=== PATIENT | male | born 1975 | race Caucasian/White ===

== ENCOUNTER → 2021-04-04 | Outpatient (CLI) | payer BC ==
--- NOTE | 2021-04-04 12:11 | FL ---
EXAMINATION TYPE: FL barium swallow DATE OF EXAM: 04/04/2021 CLINICAL HISTORY: Patient has a feeling of sticking in throat. Patient has history of GERD TECHNIQUE: A double contrast esophagram is performed utilizing air and barium. A total of 68 second s of fluoroscopic time was utilized during procedure. COMPARISON: None FINDINGS: Initially, effervescent crystals were swallowed. Thick barium was given and a cup as the pa tient was standing. Thin barium was given through a straw in the DAWSON position. The esophagus shows normal motility and emptying into the stomach. There is a tiny sliding-type hiata l hernia. There is mild spontaneous gastroesophageal reflux. No gastroesophageal reflux could be elic ited with Valsalva maneuvers. IMPRESSION: 1. Tiny sliding type hiatal hernia. 2. Mild spontaneous gastroesophageal reflux.
--- NOTE | 2021-04-04 13:01 | ECHOF ---
Referral Reason:Z82.49 family hx heart disease MEASUREMENTS -------- HEIGHT: 170.2 cm WEIGHT: 97.5 kg BP: RVIDd: 3.2 cm (< 3.3) IVSd: 1.2 cm (0.6 - 1.1) LVIDd: 4.4 cm (3.9 - 5.3) LVPWd: 1.1 cm (0.6 - 1.1) IVSs: 1.6 cm LVIDs: 2.8 cm LVPWs: 1.7 cm LAESV Index (A-L): 23.45 ml/m Ao Diam: 2.6 cm (2.0 - 3.7) AV Cusp: 2.1 cm (1.5 - 2.6) LA Diam: 3.0 cm (2.7 - 3.8) MV EXCURSION: 19.676 mm (> 18.000) MV EF SLOPE: 99 mm/s (70 - 150) EPSS: 0.6 cm MV E Sage: 0.79 m/s MV DecT: 241 ms MV A Sage: 0.53 m/s MV E/A Ratio: 1.48 RAP: 5.00 mmHg RVSP: 31.00 mmHg FINDINGS -------- Sinus rhythm. This was a technically adequate study. The left ventricular size is normal. There is mild concentric left ventricular hypertrophy. Overa ll left ventricular systolic function is normal with, an EF between 55 - 60 %. The diastolic fillin g pattern is normal for the age of the patient 8.26. The right ventricle is normal in size. Normal LA size by volume 22+/-6 ml/m2. The right atrial size is normal. Interatrial and interventricular septum intact. The aortic valve is trileaflet and appears structurally normal. There is no evidence of aortic regu rgitation. There is no evidence of aortic stenosis. Mild mitral regurgitation is present. Mild tricuspid regurgitation present. There is no evidence of pulmonary hypertension. The right v entricular systolic pressure, as measured by Doppler, is 31.00mmHg. There is no pulmonic regurgitation present. The aortic root size is normal. Normal inferior vena cava with normal inspiratory collapse consistent with estimated right atrial pre ssure of 5 mmHg. There is no pericardial effusion. CONCLUSIONS -------- 1. The left ventricular size is normal. 2. There is mild concentric left ventricular hypertrophy. 3. Overall left ventricular systolic function is normal with, an EF between 55 - 60 %. 4. The diastolic filling pattern is normal for the age of the patient 8.26 5. Mild mitral regurgitation is present. 6. Mild tricuspid regurgitation present. DRUM LOADER AND UNLOADER: Danielle Dsouza RDCS
--- NOTE | 2021-04-04 14:08 | US ---
EXAMINATION TYPE: US thyroid st tissue head/neck DATE OF EXAM: 04/04/2021 COMPARISON: NONE CLINICAL HISTORY: E04.1 Thyroid nodule. Pt states thyroid nodules, hasn't had a scan in 10 yrs, pt no t on thyroid meds GLAND SIZE: Right Lobe: 4.6 x 1.3 x 1.6 cm Overall Parenchyma: heterogenous Left Lobe: 3.7 x 1.1 x 1.4 cm Overall Parenchyma: heterogeneous Isthmus Thickness: 0.4 cm NODULES RIGHT: # of nodules measured on right: 1 1. 0.4 X 0.3 x 0.5 cm, lower lateral, solid or almost completely solid, hypoechoic nodule, which is wider than tall, with smooth margins, without echogenic foci. Prior size: No prior Bilateral neck scanned, no evidence of lymphadenopathy. Heterogeneous thyroid with small, sub-centime ter nodule right lobe. IMPRESSION: Subcentimeter right thyroid nodule is not within criteria for biopsy. Continued sonographic follow-up is recommended. 2017 ACR TI-RADS LEVEL: 4 *Highest TI-RADS level nodule reported
== END | disposition home or self-care (01) ==
LOC: RADUSWWP 09:27
PROVIDERS: ATTEND Otolaryngology
DX: E04.1 Nontoxic single thyroid nodule (principal); I08.1 Rheumatic disorders of both mitral and tricuspid valves; K21.9 Gastro-esophageal reflux disease without esophagitis; K44.9 Diaphragmatic hernia without obstruction or gangrene
CPT/HCPCS: 74220; 76536; 93306

== ENCOUNTER 2024-09-09 22:43 | Emergency (ER) | payer BC ==
[2024-09-09 22:50] VITALS: TEMP 98.9
--- NOTE | 2024-09-09 23:24 | ED ---
Arrhythmia/Palpitations HPI - General Chief Complaint: Arrhythmia/Palpitations Stated Complaint: Tachycardia Time Seen by Provider: 09/09/24 22:45 Source: patient Mode of arrival: EMS Limitations: no limitations - History of Present Illness Initial Comments: Patient is a 49-year-old gentleman the past medical history of prediabetes presenting today for palpitations. 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 He had a stress test and echocardiogram done last spring and was told they were normal. Tonight patient was in bed and had gotten up to get a glass of water and started to feel palpitations in his chest. His listen to his heart by placing her ear on his chest and heard his heart beating fast. Patient did experience some discomfort radiating down his left arm but denies any chest pain. On EMS arrival patient was noted to be in SVT. They tried vagal maneuvers without success. Patient was being transported into the ambulance and adenosine is being prepared when patient spontaneously converted, states that he felt the palpitations resolved when he went into the cold air. Currently denies chest pain, shortness of breath, lightheadedness, dizziness, nausea, vomiting, diarrhea, abdominal pain, lower extremity swelling. No history of blood clots. Patient denies illicit drug use or alcohol use. The states that he drinks large amount of caffeine daily, stating he drinks 40 ounces of cold brew and a diet pop per day. Recent travel surgery or hospitalizations. Denies fevers denies cough or sore throat. No first-degree relatives with history of prior stroke or heart attack. - Related Data Home Medications Medication Instructions Recorded Confirmed DULoxetine HCL [Cymbalta] 60 mg PO DAILY 07/17/20 07/17/20 Niacin 1,000 mg PO HS 07/17/20 07/17/20 Omeprazole 20 mg PO DAILY 07/17/20 07/17/20 Allergies Allergy/AdvReac Type Severity Reaction Status Date / Time No Known Allergies Allergy Verified 09/09/24 22:51 Review of Systems ROS Statement: Those systems with pertinent positive or pertinent negative responses have been documented in the HPI. ROS Other: All systems not noted in ROS Statement are negative. Past Medical History Past Medical History: GERD/Reflux, Hyperlipidemia, Osteoarthritis (OA), Sleep Apnea/CPAP/BIPAP Additional Past Medical History / Comment(s): Pre-diabetes, PVCs History of Any Multi-Drug Resistant Organisms: None Reported Past Surgical History: Adenoidectomy, Tonsillectomy Past Anesthesia/Blood Transfusion Reactions: No Reported Reaction Past Psychological History: ADD/ADHD, Depression Smoking Status: Never smoker Past Alcohol Use History: Occasional Past Drug Use History: None Reported General Exam - General Exam Comments Initial Comments: PE: CONSTITUTIONAL: No apparent distress, well appearing SKIN: Warm, dry, no jaundice, hives or petechiae EYES: Pupils are equally round, extraocular movements intact without nystagmus, clear conjunctiva, non-icteric sclera HENT: Normocephalic, atraumatic, moist mucus membranes, oropharynx clear without exudates NECK: , Full range of motion, normal appearance PULMONARY: Clear to auscultation without wheezes, rhonchi, or rales, normal excursion, no accessory muscle use and no stridor CARDIOVASCULAR: Regular rate, rhythm, normal S1 and S2. No appreciated murmurs, rubs or gallops. Strong radial pulses with intact distal perfusion. No lower extremity edema GASTROINTESTINAL: Soft, active bowel sounds throughout, non-tender, non- distended, no palpable masses, no rebound or guarding. No hepatosplenomegaly GENITOURINARY: MUSCULOSKELETAL: Extremities have no gross deformity, no edema, redness, or swelling. No calf swelling NEUROLOGIC:_a/o x 3, GCS 15, normal mentation and speech. Moves all extremities x 4 without motor or sensory deficit PSYCHIATRIC:_normal mood and affect, thought process is clear and linear Limitations: no limitations Course Vital Signs 09/09/24 09/09/24 09/10/24 22:45 23:03 01:00 Temperature 98.9 F Pulse Rate 75 75 79 Respiratory 22 22 16 Rate Blood Pressure 137/109 122/88 O2 Sat by Pulse 95 97 Oximetry 09/10/24 09/10/24 09/10/24 01:53 02:45 02:50 Temperature Pulse Rate 82 63 63 Respiratory 15 18 18 Rate Blood Pressure 127/88 121/98 O2 Sat by Pulse 93 L 95 Oximetry EKG Findings - EKG Comments: EKG Findings:: Sinus rhythm, rate 76 bpm, UT interval 153 ms, QRS duration 96 ms, QT/QTc 377/408 ms, normal axis, no ST elevations or depressions, no arrhythmia, no prior for comparison Medical Decision Making - Medical Decision Making Was pt. sent in by a medical professional or institution (, PA, NEUROPSYCHOLOGIST, urgent care, hospital, or [facility]...) When possible be specific @ -No Did you speak to anyone other than the patient for history (EMS, parent, family, police, friend...)? What history was obtained from this source @ -No Did you review nursing and triage notes (agree or disagree)? Why? @ -I reviewed and agree with nursing and triage notes Were old charts reviewed (outside hosp., previous admission, EMS record, old E KG, old radiological studies, urgent care reports/EKG's, [facility] records)? Report findings @ -Medical records reviewed prior EKG Differential Diagnosis (chest pain, altered mental status, abdominal pain women, abdominal pain men, vaginal bleeding, weakness, fever, dyspnea, syncope, headache, dizziness, GI bleed, back pain, seizure, CVA, palpatations, mental health, musculoskeletal)? @Differential Palpitations Ventricular arrhythmias, atrial arrhythmias, myocardial infarction, anemia, thyr otoxicosis, electrolyte imbalance, hypokalemia, pulmonary embolism, pulmonary disease, drugs, alcohol, anxiety, stress.... This is not meant to be an all-inclusive list. EKG interpreted by me (3pts min.). @ -As above X-rays interpreted by me (1pt min.). @ -No cardiomegaly or consolidations CT interpreted by me (1pt min.). @ -None done U/S interpreted by me (1pt. min.). @ -None done What testing was considered but not performed or refused? (CT, X-rays, U/S, labs)? Why? @ -None What meds were considered but not given or refused? Why? @ -None Did you discuss the management of the patient with other professionals (professionals i.e. , KEY, NEUROPSYCHOLOGIST, lab, RT, psych nurse, director social welfare, lawyers, teacher, licensing officer, case assistant)? Give summary @ -No Was smoking cessation discussed for >3mins.? @ -No Was critical care preformed (if so, how long)? @ -No Were there social determinants of health that impacted care today? How? (Homelessness, low income, unemployed, alcoholism, drug addiction, tr ansportation, low edu. Level, literacy, decrease access to med. care, fci, rehab)? @ -No Was there de-escalation of care discussed even if they declined (Discuss DNR or withdrawal of care, Hospice)? @ -No What co-morbidities impacted this encounter? (DM, HTN, Smoking, COPD, CAD, Cancer, CVA, ARF, Chemo, Hep., AIDS, mental health diagnosis, sleep apnea, morbid obesity)? @ -None Was patient admitted / discharged? Hospital course, mention meds given and route, prescriptions, significant lab abnormalities, going to OR and other pertinent info. @ Discharged- Patient is a pleasant 49-year-old gentleman history of frequent PVCs presenting today for palpitations. Noted to be in SVT by paramedics which spontaneously resolved with. On arrival patient is in normal sinus rhythm. He did present with a rhythm strip from EMS showing what appears to be SVT. Patient states symptoms resolved though does note some left shoulder soreness currently. Otherwise denies chest pain. Vital stable. Physical exam performed. Discussed with patient plan for cardiac workup, D-dimer, troponin, EKG, chest x-ray, TSH, magnesium level. Patient agreeable plan. Will order 325 mg chewable aspirin. Patient politely declined any additional pain medication. Labs and imaging reviewed. TSH elevated though T4 wnl. Otherwsie grossly within normal limits. Abnormal values not concerning for acute pathology related to presenting complaint. Troponin <0.012, repeat 0.016, still wnl, not significant elevated. Pt currently free of chest pain. Discussed these findings with pt and plan for discharge. Pt is comfortable with discharge at this point. We did discuss decreasing his caffiene intake in case ths may have triggered today's episode. Pt understanding and agreeable. In my medical judgment there is currently no evidence of an immediate life- threatening or surgical condition. Discharge is therefore indicated at this time. Discharge treatment instructions, follow up instructions, and appropriate emergency department return precautions were discussed with the patient and/or medical decision maker. Patient and/or medical decision maker expressed understanding of and agreed with the treatment plan, follow up instructions, and emergency department return precaution. All patient's and/or medical decision maker's questions were answered. The patient was advised that a small risk still exists that a serious condition could develop and was therefore instructed to return to the ED for any changes in symptoms, persistent symptoms, inability to obtain proper follow-up or for any further concerns. Patient received verbal and written instructions for this condition. Undiagnosed new problem with uncertain prognosis? @ -No Drug Therapy requiring intensive monitoring for toxicity (Heparin, Nitro, Insulin, Cardizem)? @ -No Were any procedures done? @ -No Diagnosis/symptom? @ -SVT Acute, or Chronic, or Acute on Chronic? @acute Uncomplicated (without systemic symptoms) or Complicated (systemic symptoms)? @ -complicated Side effects of treatment? @ -No Exacerbation, Progression, or Severe Exacerbation? @ -No Poses a threat to life or bodily function? How? (Chest pain, [place], [place], pneumonia, PE, COPD, DKA, ARF, appy, cholecystitis, CVA, Diverticulitis, Homicidal, Suicidal, threat to staff... and all critical care pts) @ At time of discharge no, however SVT untreated can be life threatening - Lab Data Result diagrams: 09/09/24 22:49 09/09/24 22:49 Lab Results 09/09/24 09/09/24 09/09/24 Range/Units 22:49 22:49 22:49 WBC 9.3 (3.8-10.6) k/uL RBC 5.06 (4.30-5.90) m/uL Hgb 16.5 (13.0-17.5) gm/dL Hct 47.7 (39.0-53.0) % MCV 94.4 (80.0-100.0) fL MCH 32.6 (25.0-35.0) pg MCHC 34.6 (31.0-37.0) g/dL RDW 12.3 (11.5-15.5) % Plt Count 316 (150-450) k/uL MPV 7.9 Neutrophils % 34 % Lymphocytes % 51 % Monocytes % 6 % Eosinophils % 6 % Basophils % 1 % Neutrophils # 3.2 (1.3-7.7) k/uL Lymphocytes # 4.7 (1.0-4.8) k/uL Monocytes # 0.6 (0-1.0) k/uL Eosinophils # 0.5 (0-0.7) k/uL Basophils # 0.1 (0-0.2) k/uL PT 10.1 (10.0-12.5) sec INR 0.9 (<1.2) APTT 23.4 (22.0-30.0) sec D-Dimer 0.27 (<0.60) mg/L FEU Sodium 140 (137-145) mmol/L Potassium 4.1 (3.5-5.1) mmol/L Chloride 111 H (98-107) mmol/L Carbon Dioxide 21 L (22-30) mmol/L Anion Gap 8 mmol/L BUN 18 (9-20) mg/dL Creatinine 1.23 (0.66-1.25) mg/dL Est GFR (CKD-EPI)AfAm 80 (>60 ml/min/1.73 sqM) Est GFR (CKD-EPI)NonAf 69 (>60 ml/min/1.73 sqM) Glucose 119 H (74-99) mg/dL Calcium 9.5 (8.4-10.2) mg/dL Magnesium 2.3 (1.6-2.3) mg/dL Total Bilirubin 0.9 (0.2-1.3) mg/dL AST 43 (17-59) U/L ALT 56 H (4-49) U/L Alkaline Phosphatase 62 (38-126) U/L Troponin I (0.000-0.034) ng/mL Total Protein 6.9 (6.3-8.2) g/dL Albumin 4.6 (3.5-5.0) g/dL TSH 7.460 H (0.465-4.680) mIU/L Free T4 (0.78-2.19) ng/dL 09/09/24 09/09/24 09/10/24 Range/Units 22:49 22:49 01:53 WBC (3.8-10.6) k/uL RBC (4.30-5.90) m/uL Hgb (13.0-17.5) gm/dL Hct (39.0-53.0) % MCV (80.0-100.0) fL MCH (25.0-35.0) pg MCHC (31.0-37.0) g/dL RDW (11.5-15.5) % Plt Count (150-450) k/uL MPV Neutrophils % % Lymphocytes % % Monocytes % % Eosinophils % % Basophils % % Neutrophils # (1.3-7.7) k/uL Lymphocytes # (1.0-4.8) k/uL Monocytes # (0-1.0) k/uL Eosinophils # (0-0.7) k/uL Basophils # (0-0.2) k/uL PT (10.0-12.5) sec INR (<1.2) APTT (22.0-30.0) sec D-Dimer (<0.60) mg/L FEU Sodium (137-145) mmol/L Potassium (3.5-5.1) mmol/L Chloride (98-107) mmol/L Carbon Dioxide (22-30) mmol/L Anion Gap mmol/L BUN (9-20) mg/dL Creatinine (0.66-1.25) mg/dL Est GFR (CKD-EPI)AfAm (>60 ml/min/1.73 sqM) Est GFR (CKD-EPI)NonAf (>60 ml/min/1.73 sqM) Glucose (74-99) mg/dL Calcium (8.4-10.2) mg/dL Magnesium (1.6-2.3) mg/dL Total Bilirubin (0.2-1.3) mg/dL AST (17-59) U/L ALT (4-49) U/L Alkaline Phosphatase (38-126) U/L Troponin I <0.012 0.016 (0.000-0.034) ng/mL Total Protein (6.3-8.2) g/dL Albumin (3.5-5.0) g/dL TSH (0.465-4.680) mIU/L Free T4 1.43 (0.78-2.19) ng/dL Disposition Clinical Impression: Supraventricular tachycardia Disposition: HOME SELF-CARE Condition: Good Instructions (If sedation given, give patient instructions): Heart Palpitations (ED) Additional Instructions: Every disease is a spectrum and a small chance still exists that a serious condition could develop, for this reason, please monitor yourself closely for new, changing or worsening symptoms, return of symptoms, chest pain, shortness of breath/difficulty in breathing, palpitations fever, inability to tolerate/keep down fluids or your medications, inability to follow up with outpatient providers as instructed and should you experience these symptoms or should you have any further concerns for your wellbeing please return to the ED or call 911 immediately. PLEASE call your primary care physician as soon as possible to arrange / discuss plan for followup appointment. Appointment in the next 1-3 days is strongly encouraged if possible. PLEASE let us know here before you leave if there is anything further we can do to be of any assistance. Take care and feel Better! Is patient prescribed a controlled substance at d/c from ED?: No Referrals: Sushant Orellana MD [Primary Care Provider] - 1-2 days
[2024-09-09 23:26] LABS: Basophils # (A) 0.1 k/uL (0-0.2); Basophils % (A) 1 %; Eosinophils # (A) 0.5 k/uL (0-0.7); Eosinophils % (A) 6 %; HCT 47.7 % (39.0-53.0); HGB 16.5 gm/dL (13.0-17.5); Lymphocytes # (A) 4.7 k/uL (1.0-4.8); Lymphocytes % (A) 51 %; MCH 32.6 pg (25.0-35.0); MCHC 34.6 g/dL (31.0-37.0); MCV 94.4 fL (80.0-100.0); Mean Platelet Volume 7.9; Monocytes # (A) 0.6 k/uL (0-1.0); Monocytes % (A) 6 %; Neutrophils # (A) 3.2 k/uL (1.3-7.7); Neutrophils % (A) 34 %; Platelet Count 316 k/uL (150-450); RBC 5.06 m/uL (4.30-5.90); RDW 12.3 % (11.5-15.5); WBC 9.3 k/uL (3.8-10.6)
[2024-09-09 23:31] LABS: ALT 56 U/L (4-49); AST 43 U/L (17-59); African American GFR (CKD) 80 (>60 ml/min/1.73 sqM); Albumin 4.6 g/dL (3.5-5.0); Alkaline Phosphatase 62 U/L (38-126); Anion Gap 8 mmol/L; Blood Urea Nitrogen 18 mg/dL (9-20); Calcium 9.5 mg/dL (8.4-10.2); Carbon Dioxide 21 mmol/L (22-30); Chloride 111 mmol/L (98-107); Glucose 119 mg/dL (74-99); Magnesium 2.3 mg/dL (1.6-2.3); Non-African American GFR(CKD) 69 (>60 ml/min/1.73 sqM); Potassium 4.1 mmol/L (3.5-5.1); Sodium 140 mmol/L (137-145); Total Bilirubin 0.9 mg/dL (0.2-1.3); Total Protein 6.9 g/dL (6.3-8.2)
[2024-09-09] MEDS: SODIUM CHLORIDE 0.9% 1,000 ML IV STA (23:37)
[2024-09-09] MEDS: ASPIRIN 81 MG PO STA (23:37)
[2024-09-09 23:39] LABS: INR 0.9 (<1.2); Partial Thromboplastin Time 23.4 sec (22.0-30.0); Prothrombin Time 10.1 sec (10.0-12.5)
--- NOTE | 2024-09-10 01:57 | XR ---
EXAM: XR Chest, 2 Views CLINICAL HISTORY: dysrhythmia TECHNIQUE: Frontal and lateral views of the chest. COMPARISON: No relevant prior studies available. FINDINGS: Lungs: No consolidation. No atelectasis. No CHF. Pleural space: No pleural effusion. No pneumothorax. Heart: No cardiomegaly. Mediastinum: Unremarkable. Normal mediastinal contour. Bones/joints: Unremarkable. No acute fracture. IMPRESSION: No acute abnormality.
[2024-09-10 02:51] VITALS: BP 121/98; PULSE 63; RESP 18
== END 2024-09-10 02:50 | disposition home or self-care (01) ==
LOC: EC 22:43
DX: I47.10 Supraventricular tachycardia, unspecified (principal)
CPT/HCPCS: 36415; 71046; 80053; 83735; 84439; 84443; 84484; 85025; 85379; 85610; 85730; 93005; 96360; 99285

== ENCOUNTER → 2024-10-27 | Outpatient (CLI) | payer BC ==
--- NOTE | 2024-10-27 15:44 | US ---
EXAMINATION TYPE: US thyroid st tissue head/neck DATE OF EXAM: 10/27/2024 COMPARISON: 04/04/2021 CLINICAL INDICATION: Male, 49 years old with history of E04.1 NONTOXIC SINGLE THRYOID NODULE; Not on thyroid meds. Follow up thyroid nodule. TECHNIQUE: Grayscale and color Doppler imaging of the thyroid gland. FINDINGS: GLAND SIZE: Right Lobe: 4.4 x 2.0 x 1.3 cm Overall Parenchyma: homogeneous Left Lobe: 3.8 x 1.3 x 1.3 cm Overall Parenchyma: homogeneous Isthmus Thickness: 0.5 cm NODULES RIGHT: # of nodules measured on right: 1 1. 0.4 X 0.3 x 0.3 cm, mid lateral, Prior size: 0.4 x 0.3 x 0.5 cm TIRADS Score: 4 TIRADS Category 4 Composition: Solid or almost completely solid (2 points). Echogenicity: Hypoechoic (2 points). Shape: Wider than tall (0 points). Margin: Smooth (0 points). Echogenic foci: None or large comet-tail artifacts (0 points) Recommendation: If >1.5cm: FNA; If >1cm: Follow up at 1,2, 3,5 years LEFT: # of nodules measured on left: 0 ISTHMUS: # of nodules measured in the isthmus: 0 Bilateral neck scanned, no evidence of lymphadenopathy. IMPRESSION: Right thyroid nodule that is subcentimeter consider follow-up in one year. [facility], , 10/27/2024 3:42 PM
== END | disposition home or self-care (01) ==
LOC: RADUSWWP 14:24
PROVIDERS: ATTEND Family Medicine
DX: E04.1 Nontoxic single thyroid nodule (principal)
CPT/HCPCS: 76536

== ENCOUNTER → 2025-05-03 | Outpatient (CLI) | payer BC ==
[2025-05-03 15:49] VITALS: BP 122/85; PULSE 74; RESP 16; TEMP 98.3
--- NOTE | 2025-05-03 16:22 | P.SLEEP ---
History of Present Illness DATE: 05/03/2025 CONSULTATION/NEW PATIENT EVALUATION HISTORY OF PRESENT ILLNESS/SLEEP-WAKE EVALUATION: 49-year-old gentleman had b een evaluated in the sleep center for obstructive sleep apnea hypopnea syndrome. Patient has long history of obstructive sleep apnea hypopnea syndrome, continue to use his CPAP equipment every night. I checked his CPAP unit. Pressure in the range 5-15, average 9.9, usage 90% of the time, average 6 hours per night. Leak is 7 L/min which is in normal range. Apnea hypopnea index is 0.2 which is normal. CPAP unit is noisy and old. SLEEP SCHEDULE: Usually sleep schedule from [id number] until 4:20 AM on weekdays and from midnight until 7:30 AM on weekend. FALLING ASLEEP: Sometimes patient has difficulties aorta falling asleep, has TV set in bedroom. DURING SLEEP: Patient sleeps in different positions. No snoring while using CPAP. Patient wake up from sleep 2 times with nocturia. No history of hypnogogical hallucinations, sleep paralysis, or cataplexy. DURING THE DAY/WAKE STATE: Patient may take naps during the day several times. [place] sleepiness scale is 10. PAST MEDICAL HISTORY: Depression, PVCs, tinnitus. PAST SURGICAL HISTORY: UPPP with tonsillectomy, surgical treatment for nasal septum deviation. MEDICATIONS: Please see below. SOCIAL HISTORY: Please see below. FAMILY HISTORY: Please see below. REVIEW OF SYSTEMS: No snoring on CPAP, sleepiness during the day, kicking during the night. No fevers. No double vision. No recent chest pain. No shortness of breath. No abdominal pain. No bleeding episodes. No blood in urine. No seizure episodes. PHYSICAL EXAMINATION: GENERAL: A pleasant patient without any distress. VITAL SIGNS: Please see below, weight 259 pounds, BMI 40.5. HEENT: PERRLA, EOMI. Evaluation of oropharynx showed tongue protrudes midline, low position of soft palate Mallampati 4. NECK: Supple. No JVD. Thyroid is not palpable. [] inches in circumference. LUNGS: Clear to percussion and to auscultation. Good air exchange. No wheezing or rhonchi. HEART: S1, S2 regular. No murmurs, gallops or rubs. ABDOMEN: Soft and nontender. Bowel sounds are present. No organomegaly appreciated. EXTREMITIES: No clubbing or cyanosis. RN PALLIATIVE CARE: Awake, alert, and oriented x3. Cranial nerves 2 to 7 intact. There is no fasciculation or atrophy noted. No focal deficits observed. ASSESSMENT: 1. Obstructive sleep apnea hypopnea syndrome for about 13 years. Patient continuing to use CPAP equipment every night. Reading from CPAP showed normal apnea hypopnea index. CPAP unit is old and noisy. Low position of soft palate Mallampati 4. 2. Obesity, BMI 40.5. 3. Depression. 4. Acid reflux. 5 history of PVCs. 6 . History of tendinitis. 7. Restless leg symptoms. 8. Possible periodic limb movements. 9 . Status post UPPP and nasal septoplasty. 10. Status post adenoidectomy and tonsillectomy. PLAN: 1. Prescription to replace CPAP unit. 2. To continue using CPAP equipment every night. 3. Preferable position during sleep on the side. 4. No driving if patient feels any sleepiness. Patient is aware of civil and criminal liability for unsafe driving. 5. Sleep hygiene with regular sleep time for at least 7.5-8 hours. 6. Watching and losing weight. 7 follow-up visit in 31 to 90 days after patient was started to use new CPAP equipment PERRLA clinical response to treatment, compliance with treatment and [place] adjustments. Thank you very much for referring this patient for consultation. Sincerely, Nickolas Ryan MD, PhD, FAASM. Diplomat of [place], Sleep Medicine Board by [place] [employer] [place] [employer] [facility] [place] CC: Carlos Orellana MD Past Medical History Past Medical History: GERD/Reflux, Hyperlipidemia, Osteoarthritis (OA), Sleep Apnea/CPAP/BIPAP Additional Past Medical History / Comment(s): Pre-diabetes, PVCs History of Any Multi-Drug Resistant Organisms: None Reported Past Surgical History: Adenoidectomy, Tonsillectomy Past Anesthesia/Blood Transfusion Reactions: No Reported Reaction Past Psychological History: ADD/ADHD, Depression Smoking Status: Never smoker Past Alcohol Use History: Occasional Past Drug Use History: None Reported - Past Family History Mother Family Medical History: Asthma, Cancer, COPD, Coronary Artery Disease (CAD), GERD/Reflux, Hyperlipidemia, Hypertension, Osteoarthritis (OA), Pneumonia, Thyroid Disorder Additional Family Medical History / Comment(s): bronchitis, mental illness (depression), nasal polyps Father Family Medical History: Cancer, Diabetes Mellitus Medications and Allergies Home Medications Medication Instructions Recorded Confirmed Type DULoxetine HCL [Cymbalta] 60 mg PO DAILY 07/17/20 05/03/25 History Niacin 1,000 mg PO HS 07/17/20 07/17/20 History Omeprazole 20 mg PO DAILY 07/17/20 05/03/25 History Diltiazem Cd [Cardizem CD] 180 mg PO DAILY 05/03/25 05/03/25 History Allergies Allergy/AdvReac Type Severity Reaction Status Date / Time No Known Allergies Allergy Verified 09/09/24 22:51 Physical Exam Vitals: Vital Signs Temp Pulse Resp BP Pulse Ox 05/03/25 15:48 98.3 F 74 16 122/85 96 Intake and Output 05/03/25 05/03/25 05/03/25 06:59 14:59 22:59 Other: Weight 117.48 kg Sleep Note - Sleep Data ESS Total: 10 - Sleep Note Sleep Note: Temperature: 98.3 F Pulse Rate: 74 Respiratory Rate: 16 Blood Pressure: 122/85 SpO2: 96 Height: 5 ft 7 in Weight: 117.48 kg BMI: Neck Circumference:
== END ==
LOC: 3 N SLEEP 15:14
PROVIDERS: ATTEND Internal Medicine
DX: G47.33 Obstructive sleep apnea (adult) (pediatric) (principal); E66.9 Obesity, unspecified; F32.A Depression, unspecified; K21.9 Gastro-esophageal reflux disease without esophagitis; G25.81 Restless legs syndrome; Z86.79 Personal history of other diseases of the circulatory system; Z68.41 Body mass index [BMI] 40.0-44.9, adult; Z87.39 Personal history of other diseases of the musculoskeletal system and connective tissue; Z90.49 Acquired absence of other specified parts of digestive tract; Z90.89 Acquired absence of other organs; Z98.890 Other specified postprocedural states; Z99.89 Dependence on other enabling machines and devices
CPT/HCPCS: 99211